=== PATIENT | female | born 1995 | race African-American/Black ===

== ENCOUNTER 2016-12-04 14:04 | Emergency (ER) | payer OTHER ==
[~2016-12-04] VITALS: Ht 162.6 cm; Wt 59.0 kg
[~2016-12-04 14:04] MED LIST: CIPRO PO; VOLTAREN75 MG PO; ZOFRAN ODT4 MG PO
[2016-12-09 15:02] LABS: HA AB IGM (HEPPAN) Nonreactive (()); HB CORE AB IGM (HEPPAN) Nonreactive (Nonreactive); HB S AG (HEPPAN) Nonreactive (Nonreactive); HEP C AB (HEPPAN) Nonreactive (Nonreactive); HEP C AB SIGNAL TO CUTOFF 0.01 ratio (<1.00)
== END 2016-12-04 15:00 | disposition home or self-care (01) ==
LOC: CFTX 14:04 → CED 14:04 → CFTX 14:34
PROVIDERS: Physician Assistant
DX: Z77.21 Contact with and (suspected) exposure to potentially hazardous body fluids (principal); Z23 Encounter for immunization; Z79.899 Other long term (current) drug therapy; D64.9 Anemia, unspecified
CPT/HCPCS: 80074; 87806; 90471; 90715; 99283